=== PATIENT | female | born 2000 | race African-American/Black ===

== ENCOUNTER 2018-12-02 05:12 | Emergency (ER) | payer OTHER ==
[~2018-12-02] VITALS: Ht 157.5 cm; Wt 66.8 kg
[2018-12-02] MEDS ORDERED: ONDANSETRON 4 MG ORAL DISINTEGRATING TAB (Q0162 PER 1MG) PO ONE (06:30)
[2018-12-02 06:55] LABS: BASO % 0.1 % (0.0-1.0); EOS # 0.2 10^3/uL (0.0-0.50); EOS % 1.4 % (0.0-3.0); HEMATOCRIT 44.1 % (36.0-47.0); HEMOGLOBIN 14.3 g/dl (12.0-15.5); LYMPH # 1.3 10^3/uL (1.5-6.5); LYMPH % 9.2 % (24.0-44.0); MEAN CORPUSCULAR HEMOGLOBIN 29.1 pg (27.0-33.0); MEAN CORPUSCULAR HGB CONC 32.4 g/dl (32.0-36.5); MEAN CORPUSCULAR VOLUME 89.6 fl (80.0-96.0); MONO # 0.7 10^3/uL (0.0-0.8); MONO % 5.1 % (0.0-5.0); NEUTROPHILS # 11.3 10^3/uL (1.8-7.7); NEUTROPHILS % 83.8 % (36.0-66.0); PLATELET COUNT, AUTOMATED 224 10^3/uL (150-450); RED BLOOD COUNT 4.92 10^6/uL (4.00-5.40); WHITE BLOOD COUNT 13.5 10^3/uL (4.0-10.0)
[2018-12-02 07:03] LABS: HCG, SERUM QUALITATIVE NEGATIVE (NEGATIVE)
[2018-12-02] MEDS ORDERED: PROMETHAZINE INJ 25 MG/ML VIAL (J2550) IM ONE (07:30)
[2018-12-02 08:02] LABS: ALT/SGPT 24 U/L (12-78); BILIRUBIN,DIRECT 0.2 MG/DL (0.0-0.2); BILIRUBIN,TOTAL 0.4 MG/DL (0.2-1.0); BLOOD UREA NITROGEN 10 MG/DL (7-18); CALCIUM LEVEL 8.9 MG/DL (8.5-10.1); CARBON DIOXIDE LEVEL 24 MEQ/L (21-32); CHLORIDE LEVEL 109 MEQ/L (98-107); CREATININE FOR GFR 0.77 MG/DL (0.55-1.30); GLUCOSE, FASTING 106 MG/DL (70-100); LIPASE 191 U/L (73-393); POTASSIUM SERUM 4.3 MEQ/L (3.5-5.1); SODIUM LEVEL 141 MEQ/L (136-145); TOTAL PROTEIN 7.2 GM/DL (6.4-8.2)
[2018-12-02] MEDS ORDERED: DICY10CA13 PO (08:27)
[2018-12-02] MEDS ORDERED: ONDA4TAB6 PO (08:27)
[2018-12-02 08:30] VITALS: BP 115/60
== END 2018-12-02 08:42 | disposition home or self-care (01) ==
LOC: M ED 05:12
DX: R11.2 Nausea with vomiting, unspecified (principal); R19.7 Diarrhea, unspecified; Z20.9 Contact with and (suspected) exposure to unspecified communicable disease
CPT/HCPCS: 80048; 80076; 81001; 83690; 84703; 85025; 87086; 96372; 99284; Q0162

== ENCOUNTER 2019-01-26 18:57 | Emergency (ER) | payer OTHER ==
[~2019-01-26] VITALS: Ht 157.5 cm; Wt 60.5 kg
[~2019-01-26 18:57] MED LIST: DICY10CA13 PO; ONDA4TAB6 PO
[2019-01-26 18:58] VITALS: BP 129/80
[2019-01-26] MEDS ORDERED: CYCL10TA PO (19:11)
== END 2019-01-26 21:07 | disposition left against medical advice (07) ==
LOC: M ED 18:57
DX: R51 Headache (principal); R10.30 Lower abdominal pain, unspecified